=== PATIENT | female | born 2005 | race Caucasian/White ===

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

== ENCOUNTER → 2023-02-07 16:45 | Outpatient (CLI) | payer MEDICAID, SELFPAY ==
--- NOTE | 2023-02-07 | DI.RAD_ITS ---
Exam(s) XR CHEST 2V PA LATERAL EXAM: XR CHEST 2V PA LATERAL CLINICAL HISTORY: Acute Bronchitis J20.9 TECHNIQUE: 2D digital imaging was performed of the chest. Two images were obtained. PA and lateral views were obtained. COMPARISON: CR XR CHEST 2V PA LATERAL from 10/23/2021 FINDINGS: MEDIASTINUM: Normal. HEART: Normal. PULMONARY VASCULATURE: Normal. LUNGS: Clear. PLEURAL SPACE: No pleural effusion or pneumothorax. BONE:Within normal limits for the patient's age. OTHER FINDINGS:Normal. IMPRESSION: No acute pulmonary findings. DATA REPOSITORY: RADIATION DOSE DELIVERED:
== END ==
PROVIDERS: PCP Physician Assistant; Visit Provider Physician Assistant
DX: J20.9 Acute bronchitis, unspecified (principal)
CPT/HCPCS: 71046

== ENCOUNTER 2023-06-09 11:42 | Outpatient (REF) | payer MEDICAID, SELFPAY ==
--- OUTSIDE RECORDS SUMMARY | 2023-06-09 11:44 | XMS_ITS | Continuity of Care Document ---
Author Name Unknown Organization [facility] Address [address] [place] [address] Care Team Providers Care Dinner Cook Name Role Phone Liam [facility] Primary Care Physician Encounter [facility] [id number] Date(s): 05/26/23 - 05/26/[address] [address] Encounter Diagnosis Infection of urinary tract(Discharge Diagnosis) - 05/26/23 Urinary tract infection, site not specified(Final) - Discharge Disposition: Home or Self Care Attending Physician: Belkys Greenwood MD Admitting Physician: Belkys Greenwood MD Allergies, Adverse Reactions, Alerts No Known Medication Allergies Assessment and Plan Extracted from: Title:ED Provider Note Author:Ovidio Guerrier MD Date:05/26/23 1.??Infection of urinary tra ct??N39.0 Orders: Pyridium 200 mg oral tablet, 200 mg = 1 tab, Oral, TID(PC), X 3 days, # 9 tab, 0 Refill(s), 05/29/23 20:08:00 EST, Pharmacy: [facility], 170, cm, 10/31/22 16:53:00 EDT, Height/Length Dosing, 74.84, kg, 10/31/22 16:53:00 EDT, Weight Dosing Bactrim DS 800 mg-160 mg oral tablet, 1 tab, Oral, BID, X 10 days, # 20 tab, 0 Refill(s), 06/05/23 20:07:00 EST, Pharmacy: [facility], 170, cm, 10/31/22 16:53:00 EDT, Height/Length Dosing, 74.84, kg, 10/31/22 16:53:00 EDT, Weight Dosing Bactrim DS, 1 tab, Oral, Tab, Daily, Antibiotic Indication Other (specify in order comments), First Dose: 05/26/23 20:06:00 EST, STAT Diagnostic Tests Pending * Urine Culture 05/26/23 Functional Status 05/26/23 Family Member Travel History No recent t ravel Recent Travel History No recent travel Other exposure to Infectious Disease Non e Medications Bactrim DS 800 mg-160 mg oral tablet 1 tab, Oral, BID, X 10 days, # 20 tab, 0 Refill(s), 06/05/23 7:07:00 PM DIRECTOR SOFTWARE DEVELOPMENT, Pharmacy: [id number], 170, cm, 10/31/22 16:53:00 EDT, Height/Length Dosing, 74.84, kg, 10/31/22 16:53:00 EDT, WeightDosing Start Date: 05/26/23 Stop Date: 06/05/23 Status: Ordered Keppra 0 Refill(s) Start Date: 09/11/22 Status: Ordered Pyridium 200 mg oral tablet 200 mg = 1 tab, Oral, TID(PC), X 3 days, # 9 tab, 0 Refill(s), 05/29/23 7:08:00 PM DIRECTOR SOFTWARE DEVELOPMENT, Pharmacy: [id number], 170, cm, 10/31/22 16:53:00 EDT, Height/Length Dosing, 74.84, kg, 10/31/22 16:53:00 EDT, Weight Dosing Start Date: 05/26/23 Stop Date: 05/29/23 Status: Ordered Results Laboratory List Name Date Test Urine Qual 05/26/23 Urinalysis Microscopic 05/26/23 Urinalysis with Micro if Indicated and C ulture if Indicated 05/26/23 Most recent to oldest [Reference Range]: 1 UA Color Yellow (05/26/23 6:45 PM) UA WBC [0-3] 25-50 *ABN* (05/26/23 6:45 PM) UA Urobilinogen Normal (05/26/23 6:45 PM) UA Bili [Negative] Negative (05/26/23 6:45 PM) UA Ketones Trace *ABN* (05/26/23 6:45 PM) UA RBC [0-2] 3-5 (05/26/23 6:45 PM) UA Leuk Est 2+ *ABN* (05/26/23 6:45 PM) UA Nitrite Negative (05/26/23 6:45 PM) UA Glucose [Negative] Negative (05/26/23 6:45 PM) UA Bacteria Moderate /HPF *ABN* (05/26/23 6:45 PM) UA Protein Trace *ABN* (05/26/23 6:45 PM) UA Blood 1+ *ABN* (05/26/23 6:45 PM) UA Mucous Rare /HPF *ABN* (05/26/23 6:45 PM) UA Spec Grav 1.025 *NA* (05/26/23 6:45 PM) UA Squam Epithelial [None Seen] Many *ABN* (05/26/23 6:45 PM) UA pH 6.0 *NA* (05/26/23 6:45 PM) UA Appear Hazy *ABN* (05/26/23 6:45 PM) UA Culture Ind?. Indicated (05/26/23 6:45 PM) U hCG Ql Negative (05/26/23 6:45 PM) Vital Signs Most recent to oldest [Reference Range]: 1 Temperature Temporal Artery [36-38 Deg C ] 36.2 Deg C (05/26/23 6:04 PM) Heart Rate Monitored [60-100 bpm] 72 bpm (05/26/23 6:04 PM) Respiratory Rate [12-24 br/min] 14 br/mi n (05/26/23 6:04 PM) Blood Pressure [90-140/60-90 mmHg] 140/6 5mmHg (05/26/23 6:04 PM) Mean Arterial Pressure, Cuff [70-110 mmH g] 90 mmHg (05/26/23 6:04 PM) Weight Estimated 78.84 kg (05/26/23 6:04 PM) Body Mass Index Estimated 27.28 kg/m2 (05/26/23 6:04 PM) Height/Length Estimated 170 cm (05/26/23 6:04 PM) Social History Social History Type Response Tobacco Never tobacco user T obacco Use:. Sex Female Physician Emergency department Note * Ovidio Guerrier MD: PERFORM Event Display: ED Note Physician Authored Date: TIM BLAKE :2005 Age:18 years Sex:Female Visit Date:05/26/2023 Primary Care Physician: Liam MEJÍA-YUE, Vimal STEVENSON Basic Information Time Seen: Ovidio Guerrier MD / 05/26/2023 20:03 Chief Complaint Urination, burning, left flank pain. Afebrile. Last night 7/10 pain. Better today. Never had UTI before. Trying to get . History Of Present Illness: Any concern is dysuria. ??Time of onset is 1 week ago.?? Associated symptoms are feeling warm at night, urinary frequency??and headache.?? Also mild left back pain. Review of Systems: As per HPI. Physical Exam Vitals & Measurements T:??36.2?C ??(Temporal Artery)?? HR:??72??(Monitored)?? RR:??14?? BP:??140/65?? SpO2:??100%?? HT:??170??cm?? WT:??78.84??kg??(Estimated)?? BMI:??27.28?? Pain Score:??7?? O2 Therapy:??Room air?? No distress. ??Respirations normal. ??Mental status normal??minimal left CVA tenderness. Medical Decision Making: Complexity is low. ??Data complexity is low. ??Management risk are low. ??MDM coding 49437 Procedure No Qualifying Data Assessment/Plan 1.??Infection of urinary tract??N39.0 Orders: Pyridium 200 mg oral tablet, 200 mg = 1 tab, Oral, TID(PC), X 3 days, # 9 tab, 0 Refill(s), 05/29/23 20:08:00 EST, Pharmacy: [facility], 170, cm, 10/31/22 16:53:00 EDT, Height/Length Dosing, 74.84, kg, 10/31/22 16:53:00 EDT, Weight Dosing Bactrim DS 800 mg-160 mg oral tablet, 1 tab, Oral, BID, X 10 days, # 20 tab, 0 Refill(s), 06/05/23 20:07:00 EST, Pharmacy: [facility], 170, cm, 10/31/22 16:53:00 EDT, Height/Length Dosing, 74.84, kg, 10/31/22 16:53:00 EDT, Weight Dosing Bactrim DS, 1 tab, Oral, Tab, Daily, Antibiotic Indication Other (specify in order comments), FirstDose: 05/26/23 20:06:00 EST, STAT Medication Reconciliation New Prescription phenazopyridine (Pyridium 200 mg oral tablet)1 tab Oral (given by mouth) 3 times a day after meals for 3 Days. Refills: 0. ?? sulfamethoxazole-trimethoprim (Bactrim DS 800 mg-160 mg oral tablet)1 tab Oral (given by mouth) 2 times a day for 10 Days. Refills: 0. ?? Unchanged levETIRAcetam (Keppra) Problem List/Past Medical History Ongoing No qualifying data Historical No qualifying data Medication Administration Given Bactrim DS, 1 tab, Oral Pyridium, 190 mg, Oral Allergies No Known Medication Allergies Social History Electronic Cigarette/Vaping Electronic Cigarette Use: Never. Tobacco Never tobacco user Tobacco Use:. Lab Results Testing?? LATEST RESULTS?? U hCG Ql?? 05/26/23 18:45?? Negative? UA Macroscopic?? LATEST RESULTS?? UA Color?? 05/26/23 18:45?? Yellow?? UA Appear?? 05/26/23 18:45?? Hazy Abnormal?? UA Glucose?? 05/26/23 18:45?? Negative?? UA Bili?? 05/26/23 18:45?? Negative?? UA Ketones?? 05/26/23 18:45?? Trace Abnormal?? UA Spec Grav?? 05/26/23 18:45?? 1.025?? UA Blood?? 05/26/23 18:45?? 1+ Abnormal?? UA pH?? 05/26/23 18:45?? 6.0?? UA Protein?? 05/26/23 18:45?? Trace Abnormal?? UA Urobilinogen?? 05/26/23 18:45?? Normal?? UA Nitrite?? 05/26/23 18:45?? Negative?? UA Leuk Est?? 05/26/23 18:45?? 2+ Abnormal?? UA Culture Ind?.?? 05/26/23 18:45?? Indicated? UA Microscopic?? LATEST RESULTS?? UA WBC?? 05/26/23 18:45?? 25-50 Abnormal?? UA RBC?? 05/26/23 18:45?? 3-5?? UA Squam Epithelial?? 05/26/23 18:45?? Many Abnormal?? UA Mucous?? 05/26/23 18:45?? Rare Abnormal?? UA Bacteria?? 05/26/23 18:45?? Moderate Abnormal? Electronically Signed on 05/26/23 08:11 PM Ovidio Guerrier MD Emergency department Discharge instructions * Ovidio Guerrier MD: PERFORM Event Display: ED Discharge Information Authored Date: [id number] TIM BLAKE :2005 Age:18 years Sex:Female Visit Date:05/26/2023 Primary Care Physician: Liam GOMEZ, Vimal STEVENSON Discharge Instructions We would like to thank you for allowing us to assist you with your healthcare needs. The following includes patient education materials and information regarding your injury/illness. Diagnosis from Today's Visit Infection of urinary tract Discharge Vitals Temperature??(Temporal Artery) 97.2 ??F (36.2 ??C) Heart Rate??(Monitored) 72 Respiratory Rate?? 14 Blood Pressure?? 140/65?? Height?? 66.93 in (170 cm) Weight??(Estimated) 173.84 lb (78.84 kg) BMI?? 27.28 Allergies No Known Medication Allergies You were treated today on an emergency basis; it may be castellanos to contact your primary care provider to notify them of your visit today. You may have been referred to your regular doctor or a specialist, please follow up as instructed. If your condition worsens or you can't get in to see the doctor, contact the Emergency Department. Medications What How Much When Instructions Next Dose New phenazopyridine (Pyridium 200 mg oral tablet) 1 tab Oral (given by mouth) 3 times a day after meals Duration: 3 Days Pickup at [facility] New sulfamethoxazole-trimethoprim (Bactrim DS 800 mg-160 mg oral tablet) 1 tab Oral (given by mouth) 2 times a day Duration: 10 Days Pickup at [facility] Unchanged levETIRAcetam (Keppra) Pharmacy Information [facility]: [address], [place] [id number] [phone] Tests Performed Medications and Immunizations Administered Given Bactrim DS, 1 tab, Oral Pyridium, 190 mg, Oral Lab Test Name Test Result Date/Time U hCG Ql NEGATIVE 05/26/2023 18:45 EST UA Color YELLOW. 05/26/2023 18:45 EST UA Appear Hazy- [place] 05/26/2023 18:45 EST UA Glucose NEGATIVE 05/26/2023 18:45 EST UA Bili NEGATIVE 05/26/2023 18:45 EST UA Ketones TRACE. 05/26/2023 18:45 EST UA Spec Grav 1.025 05/26/2023 18:45 EST UA Blood 1+ 05/26/2023 18:45 EST UA pH 6.0 05/26/2023 18:45 EST UA Protein TRACE. 05/26/2023 18:45 EST UA Urobilinogen 0.2 Uro 05/26/2023 18:45 EST UA Nitrite NEGATIVE 05/26/2023 18:45 EST UA Leuk Est 2+ 05/26/2023 18:45 EST UA Culture Ind?. Indicated 05/26/2023 18:45 EST UA WBC 25-50 05/26/2023 18:45 EST UA RBC 3-5 05/26/2023 18:45 EST UA Squam Epithelial Many 05/26/2023 18:45 EST UA Mucous Rare 05/26/2023 18:45 EST UA Bacteria Moderate 05/26/2023 18:45 EST Patient/White Mixing Operator Signature Patient Name:LOU TIM Giovany I have received this information and my questions have been answered. Patient/White Mixing Operator Name: Patient/White Mixing Operator Signature: Relationship to Patient: Witness Name/Signature: Date: Electronically Signed on: 05/26/2023 20:11 ESTSigned by:[facility] Discharge summary * Shell Jacobsen H: PERFORM Event Display: Discharge Summary Authored Date: [id number] Patient Care team information Care Team Personnel Name: Liam MEJÍAHC-VTVimal Position: No Access Member Role: Informed Provider Address: Address: [facility] [id number] [place] [address] Care Team Related Persons Name: ANITA ZAMBRANO Name: REX BLAKE
--- OUTSIDE RECORDS SUMMARY | 2023-06-09 11:44 | XMS_ITS | Continuity of Care Document ---
Author Name Unknown Organization [facility] Address [address] [place] [address] Care Team Providers Care Front End Web Designer Name Role Phone [facility] Primary [facility]ician [phone] Encounter [facility] Date(s): 09/11/22 - 09/11/22 [facility] [address] [place] [address] Discharge Disposition: Home or Self Care Attending Physician: Aries Liu MD Admitting Physician: Aries Liu MD Allergies, Adverse Reactions, Alerts No Known Medication Allergies Functional Status 09/11/22 Other exposure to Infectious Disease Non e Medications Keppra 0 Refill(s) Start Date: 09/11/22 Status: Ordered Vital Signs Most recent to oldest [Reference Range]: 1 Temperature Temporal Artery [36-38 Deg C ] 37.4 Deg C (09/11/22 10:04 PM) Peripheral Pulse Rate [60-100 bpm] 108 b pm *HI* (09/11/22 10:04 PM) Respiratory Rate [12-24 br/min] 16 br/mi n (09/11/22 10:04 PM) Blood Pressure [90-140/60-90 mmHg] 144/8 5mmHg *HI* (09/11/22 10:04 PM) Weight Dosing 86.00 kg (09/11/22 10:09 PM) Weight Estimated 86.00 kg (09/11/22 10:04 PM) Height/Length Dosing 170.000 cm (09/11/22 10:09 PM) Height/Length Estimated 170.000 cm (09/11/22 10:04 PM) Social History Social History Type Response Tobacco Never tobacco user T obacco Use:. Sex Female Physician Emergency department Note * Aries Liu MD: PERFORM Event Display: ED Note Physician Authored Date: [id number] TIM BLAKE :2005 Age:17 years Sex:Female Visit Date:09/11/2022 Primary Care Physician: Vimal Dickinson HPI 17-year-old female presents for evaluation of left third and fourth finger pain predominantly at the MCP, patient reports that these fingers bent back when she slipped and caught herself with her left hand shortly prior to arrival. Patient was on stairs when she slipped. Denies further injuries.??ROS with no recent constitutional symptoms. ?? Exam HR 108, RR 16, BP 144/85, T 37.4?C, SaO2 98% on room air. Gen: Pleasant, nontoxic-appearing, resting comfortably. HEENT: NC, AT, PEERL, EOMI. Resp: Unlabored respirations with a normal work of breathing. Card: Extremities warm and well perfused.?? GI: Non-distended. : Deferred MSK: Left hand with slight swelling on the dorsum of the hand predominantly over the third and fourth MCPs. All fingers warm and well perfused, slightly reduced range of motion throughout all modalities of the third and fourth finger secondary to pain at the MCP. Otherwise full functional range of motion all modalities of the 5 fingers. No underlying bony tenderness to palpation or palpable abnormalities. Sensation grossly intact to touch. Neuro:??alert and oriented?3, no facial asymmetry, vision and hearing WNL. Heme/Lymph: Deferred Skin: Normal color with no visible lesions (other than noted above). Psych: Mood and affect appropriate. ?? Imaging XR L Hand:??No fracture. If pain persists, suggest splinting and follow up radiographs in 7-10 days. ?? MDM Previous chart, nursing note, and vitals reviewed.?? A:??17-year-old female presents for evaluation of left third and fourth finger pain predominantly at the MCP, patient reports that these fingers bent back when she slipped and caught herself with herleft hand shortly prior to arrival.? DDx & Evaluation: CMS intact, imaging without evidence of fracture. Recommend NSAIDs and PCP follow-up if pain persist. ?? Impression: hand pain, MCP strain. Electronically Signed on 09/11/22 11:32 PM Aries Liu MD Emergency department Discharge instructions * Aries Liu MD: PERFORM Event Display: ED Discharge Information Authored Date: [id number] TIM BLAKE :2005 Age:17 years Sex:Female Visit Date:09/11/2022 Primary Care Physician: Vimal Dickinson Discharge Instructions We would like to thank you for allowing us to assist you with your healthcare needs. The following includes patient education materials and information regarding your injury/illness. ?? You were seen at [facility] for evaluation for evaluation of??injuries to your left hand. At the time of your evaluation no fractures were found. You are suspected to have a strain of your third and fourth metacarpal phalangeal joints (knuckles). You may take ibuprofen and acetaminophenas directed below for treatment of pain. Should you have significant persisting pain after 3-4 days, please follow-up with your primary care physician for repeat evaluation and further care as needed.??Please read and follow all of the instructions below. ?? When calling for follow-up care, please make the office aware that this follow- up is from your recent emergency room visit.? Your care today was limited to identifying and treating emergent medical problems only. Many peoplehave subtle differences in their test results that require follow up with their outpatient physician(s) to correctly determine if this represents a normal variation or concerning abnormality with respect to your specific health.??The care given to you today was limited to identifying and treating emergent medical problems - you need to request a copy of all of your medical records from today's visit and follow up with your outpatient physician(s) to review both today's visit and your overall health. If you have any new symptoms or if you are at all concerned about your health please return immediately to the emergency department. ?? Prescriptions: If you are uninsured or have financial difficulties with filling your prescription(s), you may consider using a free pharmacy discount service such as [employer] ([employer]) or [employer] ([employer] These services allow you to search for a medication on your phone (or computer) and obtain a coupon that usually has a significant discount from the list lopez at a pharmacy. Your physician does not have a financial relationship with either of these services. You may also wish to speak with your physician to determine if lower cost prescriptions are possible. ?? You make take over the counter Acetaminophen (Tylenol) and Ibuprofen (Motrin or Aleve) as directed below for relief of pain.?Take 600 mg of ibuprofen (three 200 mg tablets) with a glass of water every 6-8 hours as neededfor pain or fever. Do not take if you have ulcers, GI bleeding, are , or are allergic to ibuprofen. ?Take 1,000 mg of acetaminophen (two 500 mg tablets) with a glass of water every 6-8 hours as needed for pain. Do not take if you are allergic to acetaminophen. If you have liver disease, please reduce your dose to a maximum of 2,000 mg per day. ?You can take these medications at the same time or on separate schedules.?Do not take for more than 10 days. ?Do not take with alcohol or other acetaminophen containing medications.?This medication may cause a mildly upset stomach, if so take it with a small snack. Stop takingit if you have persistent abdominal pain, heartburn, or any stomach pain. Do not take this medication if you have known ulcers.?Please read the warnings at the end of this document regarding these medications.? IBUPROFEN WARNING: This drug may infrequently cause serious (rarely fatal) bleeding from the stomach or intestines. Also, related drugs rarely have caused blood clots to form, resulting in heart attacks and strokes. This medication might also rarely cause similar problems. Talk to your doctor or pharmacist about the benefits and risks of treatment, as well as other possible medication choices. Ifyou notice any of the following rare but very serious side effects, stop taking ibuprofen and seek immediate medical attention: black stools, persistent stomach/abdominal pain, vomit that looks like coffee grounds, chest pain, weakness on one side of the body, sudden vision changes, slurred speech.? IBUPROFEN SIDE EFFECTS: Upset stomach, nausea, vomiting, heartburn, headache, diarrhea, constipation, drowsiness, and dizziness may occur. If any of these effects persist or worsen, notify your doctor or pharmacist promptly. If your doctor has directed you to use this medication, remember that he or she has judged that the benefit to you is greater than the risk of side effects. Many people usingthis medication do not have serious side effects. Tell your doctor immediately if any of these serious side effects occur: stomach pain, swelling of the hands or feet, sudden or unexplained weight gain, ringing in the ears (tinnitus). Tell your doctor immediately if any of these unlikely but serious side effects occur: vision changes, rapid or pounding heartbeat, easy bruising or bleeding, difficult/painful swallowing. Tell your doctor immediately if any of these highly unlikely but very serious side effects occur: change in amount of urine, severe headache, very stiff neck, mental/mood changes, persistent sore throat or fever. This drug may rarely cause serious (possibly fatal) liver disease. If you notice any of the following highly unlikely but very serious side effects, stop taking ibuprofen and consult your doctor or pharmacist immediately: yellowing eyes and skin, dark urine, unusual/extreme tiredness. An allergic reaction to this drug is unlikely, but seek immediate medical attention if it occurs. Symptoms of an allergic reaction include: rash, itching/swelling (especially ofthe face/tongue/throat), severe dizziness, trouble breathing. This is not a complete list of possible side effects.? ACETAMINOPHEN SIDE EFFECTS: This drug usually has no side effects. If you do not have liver problems, the maximum dose of acetaminophen for adults is 4 grams per day (4000 milligrams). Taking more than the maximum daily amount may cause serious (possibly fatal) liver damage. Get medical help right away if you have any of the following symptoms of liver damage: persistent nausea/vomiting, extreme tiredness, stomach/abdominal pain, yellowing eyes/skin, dark urine. If you have liver problems, consult your doctor or pharmacist for a safe dosage of this medication. A very serious allergic reactionto this drug is rare. However, get medical help right away if you notice any symptoms of a serious allergic reaction, including: rash, itching/swelling (especially of the face/tongue/throat), severe dizziness, trouble breathing. This is not a complete list of possible side effects. If you notice other effects not listed above, contact your doctor or pharmacist. ?? DRUG INTERACTIONS: Your healthcare professionals (e.g., doctor or pharmacist) may already be aware of any possible drug interactions and may be monitoring you for it. Do not start, stop or change thedosage of any medicine before checking with them first. This drug should not be used with the following medications because very serious interactions may occur: cidofovir, ketorolac. If you are currently using any of these medications listed above, tell your doctor or pharmacist before starting ibuprofen. Before using this medication, tell your doctor or pharmacist of all prescription and nonprescription/herbal products you may use, especially of: anti-platelet drugs (e.g., cilostazol, clopidogrel), oral bisphosphonates (e.g., alendronate), other medications for arthritis (e.g., aspirin, methotrexate), blood thinners (e.g., enoxaparin, heparin, warfarin), corticosteroids (e.g., prednisone), cyclosporine, desmopressin, high blood pressure drugs (including CHANA inhibitors such as captopril, angiotensin II receptor antagonists such as losartan, and beta-blockers such as metoprolol), lithium, pemetrexed, water pills (diuretics such as furosemide, hydrochlorothiazide, triamterene). Check all prescription and nonprescription medicine labels carefully for other pain/fever drugs (NSAIDs such as aspirin, celecoxib, naproxen). These drugs are similar to ibuprofen, so taking one of these drugs while also taking ibuprofen may increase your risk of side effects. Consult your doctor or pharmacist for more details. However, if your doctor has prescribed low doses of aspirin to prevent heart attack or stroke (usually at dosages of 81-325 milligrams a day), you should continue to take theaspirin. Daily use of ibuprofen may decrease aspirin's ability to prevent heart attack/stroke. Talkto your doctor about using a different medication (e.g., acetaminophen) to treat pain/fever. If youmust take ibuprofen, talk to your doctor about possibly taking immediate-release aspirin (not enteric-coated) while also taking the ibuprofen dose apart from your aspirin dose. Do not increase your daily dose of aspirin or change the way you take aspirin/other medications without your doctor's approval. This document does not contain all possible interactions. Therefore, before using this product, tell your doctor or pharmacist of all the products you use. Keep a list of all your medications with you, and share the list with your doctor and pharmacist.? Discharge Vitals Temperature??(Temporal Artery) 99.3 ??F (37.4 ??C) Heart Rate??(Peripheral) 108 Respiratory Rate?? 16 Blood Pressure?? 144/85?? Height?? 66.93 in (170.000 cm) Weight??(Estimated) 189.63 lb (86.00 kg) Allergies No Known Medication Allergies You were [...] doctor, contact the Emergency Department. Medications What When Instructions Next Dose Unchanged levETIRAcetam (Keppra) Patient/Supervisor [employer] Signature Patient Name:TIM BLAKE I have received this information and my questions have been answered. Patient/Supervisor [employer] Name: Patient/Supervisor [employer] Signature: Relationship to Patient: Witness Name/Signature: Date: Electronically Signed on: 09/11/2022 23:33 EDTSigned by:YOANDY Emergency department Note * Rosaline Gardner: PERFORM Event Display: ED Notes Authored Date: Patient Care team information Care Team Personnel Name: Vimal Dickinson Position: No Access Member Role: Primary Care Physician Address: Address: [address] Name: Aries Liu MD Position: Physician Member Role: Attending Physician Name: Rama Landry Position: Nurse Member Role: ED Nurse Care Team Related Persons Name: ANITA BLAKE Name: REX BLAKE
--- OUTSIDE RECORDS SUMMARY | 2023-06-09 11:44 | XMS_ITS | Continuity of Care Document ---
Author Name Unknown Organization [facility] Address [address] [place] [address] Care Team Providers Care Forming Department Supervisor Name Role Phone Liam [facility] Encounter [facility] Date(s): 09/24/22 - 09/24/22 [facility] [address] [place] [address] Discharge Disposition: Home or Self Care Attending Physician: Aries Liu MD Admitting Physician: Aries Liu MD Allergies, Adverse Reactions, Alerts No Known Medication Allergies Functional Status 09/24/22 Recent Travel History No recent travel Other exposure to Infectious Disease Non e Medications Keppra 0 Refill(s) Start Date: 09/11/22 Status: Ordered Vital Signs Most recent to oldest [Reference Range]: 1 Temperature Temporal Artery [36-38 Deg C ] 36.6 Deg C (09/24/22 10:06 PM) Peripheral Pulse Rate [60-100 bpm] 81 bp m (09/24/22 10:06 PM) Respiratory Rate [12-24 br/min] 16 br/mi n (09/24/22 10:06 PM) Blood Pressure [90-140/60-90 mmHg] 133/6 8mmHg (09/24/22 10:06 PM) Weight Dosing 86.00 kg (09/24/22 10:11 PM) Weight Estimated 86.00 kg (09/24/22 10:06 PM) Height/Length Dosing 170.000 cm (09/24/22 10:11 PM) Height/Length Estimated 170.000 cm (09/24/22 10:06 PM) Social History Social History Type Response Tobacco Never tobacco user T obacco Use:. Sex Female Physician Emergency department Note * Aries Liu MD: PERFORM Event Display: ED Note Physician Authored Date: [id number] TIM BLAKE :2005 Age:17 years Sex:Female Visit Date:09/24/2022 Primary Care Physician: Liam RODAS, Vimal STEVENSON HPI 17-year-old female presents for evaluation of an injury to her right thumb sustained shortly prior to arrival when it was struck by a fan blade. Patient has a superficial approximately 3 mm long partial-thickness laceration but is concerned that she may have underlying bony deformity. Notes normal distal sensation. Notes that she is not vaccinated (e.g. no prior tetanus vaccinations). ROS with norecent constitutional symptoms. ?? Exam HR 81, RR 16, BP 133/68, T 36.6?C, SaO2 98% on room air. Gen: Pleasant, nontoxic-appearing, resting comfortably. HEENT: NC, AT, PEERL, EOMI. Resp: Unlabored respirations with a normal work of breathing. Card: Extremities warm and well perfused.?? GI: Non-distended. : Deferred MSK: Right thumb with approximately 3 mm long partial-thickness laceration on the medial aspect of the dorsum of the finger approximately 1 cm proximal to the IP joint. No underlying bony tenderness to palpation or palpable abnormalities. Full functional range of motion of the MCP and IP of the first finger. Distal sensation grossly intact to touch, brisk distal capillary refill. Neuro:??alert and oriented?3, no facial asymmetry, vision and hearing WNL. Heme/Lymph: Deferred Skin: Normal color with no visible lesions (other than noted above). Psych: Mood and affect appropriate. ?? Imaging XR R Thumb:??No displaced fractures identified. Cannot rule out mild soft tissue?? swelling. ?? MDM Previous chart, nursing note, and vitals reviewed.?? A: 17-year-old female presents for evaluation of an injury to her right thumb sustained shortly prior to arrival when it was struck by a fan blade.? DDx & Evaluation: Laceration should heal well by secondary intention, patient refusing tetanus vaccination. Imaging without evidence of fracture. Patient given home care instructions and return to care precautions. ?? Impression: Laceration, contusion. Electronically Signed on 09/24/22 11:12 PM Aries Liu MD Emergency department Discharge instructions * Aries Liu MD: PERFORM Event Display: ED Discharge Information Authored Date: [id number] TIM BLAKE :2005 Age:17 years Sex:Female Visit Date:09/24/2022 Primary Care Physician: Vimal Dickinson Discharge Instructions We would like to thank you for allowing us to assist you with your healthcare needs. The following includes patient education materials and information regarding your injury/illness. ?? You were seen at [facility] for evaluation for evaluation of??injuries after being struck by a fan. You are found to have a small laceration that should heal well on its own. Your imagingis without evidence of a fracture. As we discussed, a tetanus vaccination was recommended to reduceyour risk of mary ann tetanus. Clostridium tendinitis spores are present throughout the environment including on objects and the soil. This disease can have a mortality rate upwards of 45% and symptoms can present between 2 days and up to 60 days after initial exposure. Should you develop musclerigidity, muscle spasms, difficulty breathing, or increasing pain, please go to the nearest emergency department. It is recommended that you should follow-up with your primary care physician to review risks and benefits of vaccinations. Additionally, should you develop redness, pain, swelling, tenderness, or discharge from your laceration, please return immediately to the emergency department. Inthe meantime, please keep your wound wash, clean, covered, and dry. ??You may take ibuprofen and acetaminophen as directed on the bottle for treatment of pain. ??Please read and follow all of the instructions below. ?? Please follow up with your primary care physician??this week. When calling for follow-up care, please make the office aware that this follow-up is from your recent emergency room visit.? [...] a free pharmacy discount service such as [employer] ([employer]) or [employer] ([employer]). These services allow you to search for a medication on your phone (or computer) and obtain a coupon that usually has a significant discount from the list lopez at a pharmacy. Your physician does not have a financial relationship with either of these services. You may also wish to speak with your physician to determine if lower cost prescriptions are possible. ?? Ibuprofen (Brand Names: Motrin, Advil) ?Take 400 mg with a glass of water every 6 to 8 hours as needed for pain or fever. ?Do not take for more than 10 days.?This medication may cause a mildly upset stomach, if so take it with a small snack. Stop takingit if you have persistent abdominal pain, heartburn, or any stomach pain. Do not take this medication if you have known ulcers.?Do not take with Naproxen Sodium (brand name: Aleve) or other non-steroidal antiiflammatory medications that you may be prescribed (e.g. Diclofenac, Etodolac, Indomethicin) ?? WARNING: This drug may infrequently cause serious (rarely fatal) bleeding from the stomach or intestines. Also, related drugs rarely have caused blood clots to form, resulting in heart attacks and strokes. This medication might also rarely cause similar problems. Talk to your doctor or pharmacist about the benefits and risks of treatment, as well as other possible medication choices. If you notice any of the following rare but very serious side effects, stop taking ibuprofen and seek immediate medical attention: black stools, persistent stomach/abdominal pain, vomit that looks like coffee grounds, chest pain, weakness on one side of the body, sudden vision changes, slurred speech.? SIDE EFFECTS: Upset stomach, nausea, vomiting, heartburn, headache, diarrhea, constipation, drowsiness, and dizziness may occur. If any of these effects persist or worsen, notify your doctor or pharmacist promptly. If your doctor has directed you to use this medication, remember that he or she has judged that the benefit to you is greater than the risk of side effects. Many people using this medication do not have serious side effects. [...] an allergic reaction include: rash, itching/swelling (especially of the face/tongue/throat), severe dizziness, trouble breathing. This is not a complete list of possible side effects.? DRUG INTERACTIONS: Your healthcare professionals (e.g., doctor [...] share the list with your doctor and pharmacist. Acetaminophen (Tylenol) ?Please take 1,000 mg every 6 hours as needed for pain.?Do no use with alcohol or other??acetaminophen??containing medications.? SIDE EFFECTS: This drug usually has no side effects. If you do not have liver problems, the maximumdose of acetaminophen for adults is 4 grams per day (4000 milligrams). Taking more than the maximumdaily amount may cause serious (possibly fatal) liver damage. Get medical help right away if you have any of the following symptoms of liver damage: persistent nausea/vomiting, extreme tiredness, stomach/abdominal pain, yellowing eyes/skin, dark urine. If you have liver problems, consult your doctor or pharmacist for a safe dosage of this medication. A very serious allergic reaction to this drug is rare. However, get medical help right away if you notice any symptoms of a serious allergic reacti on, including: rash, itching/swelling (especially of the face/tongue/throat), severe dizziness, trouble breathing. This is not a complete list of possible side effects. If you notice other effects not listed above, contact your doctor or pharmacist. ?? Discharge Vitals Temperature??(Temporal Artery) 97.9 ??F (36.6 ??C) Heart Rate??(Peripheral) 81 Respiratory Rate?? 16 Blood Pressure?? 133/68?? Height?? 66.93 in (170.000 cm) Weight??(Estimated) 189.63 [...] When Instructions Next Dose Unchanged levETIRAcetam (Keppra) Patient/Real Estate Valuer Signature Patient Name:TIM BLAKE I have received this information and my questions have been answered. Patient/Real Estate Valuer Name: Patient/Real Estate Valuer Signature: Relationship to Patient: Witness Name/Signature: Date: Electronically Signed on: 09/24/2022 23:13 EDTSigned by:YOANDY Emergency department Note * Shell Jacobsen H: PERFORM Event Display: ED Notes Authored Date: [id number] Patient Care team information Care Team Personnel Name: Vimal Dickinson Position: No Access Member Role: Informed Provider Address: Address: [address] Name: Aries Liu MD Position: Physician Member Role: Attending Physician Name: Vivian Hoffman RN Position: Nurse Member Role: ED Nurse Care Team Related Persons Name: ANITA ZAMBRANO Name: REX BLAKE
--- OUTSIDE RECORDS SUMMARY | 2023-06-09 11:44 | XMS_ITS | Continuity of Care Document ---
Author Name Unknown Organization [facility] Address [address] [place] [address] Care Team Providers Care Client Service Professional Name Role Phone [facility] Phys[facility] Date(s): 10/31/22 - 10/31/[address] [address] Encounter Diagnosis Otitis externa(Discharge Diagnosis) - 10/31/22 Discharge Disposition: Home or Self Care Attending Physician: Ovidio Guerrier MD Admitting Physician: Ovidio Guerrier MD Allergies, Adverse Reactions, Alerts No Known Medication Allergies Assessment and Plan Extracted from: Title:Clinical Document Author:Kati Weinberg te:10/31/22 Diagnosis: 1. Otitis externa Comment: Diagnosis: Pain in ear Comment: Functional Status 10/31/22 Other exposure to Infectious Disease Non e Medications Keppra 0 Refill(s) Start Date: 09/11/22 Status: Ordered Vital Signs Most recent to oldest [Reference Range]: 1 Temperature Temporal Artery [36-38 Deg C ] 35.8 Deg C *LOW* (10/31/22 4:50 PM) Peripheral Pulse Rate [60-100 bpm] 86 bp m (10/31/22 4:50 PM) Respiratory Rate [12-24 br/min] 18 br/mi n (10/31/22 4:50 PM) Blood Pressure [90-140/60-90 mmHg] 133/8 5mmHg (10/31/22 4:50 PM) Weight Dosing 74.84 kg (10/31/22 4:53 PM) Weight Estimated 74.84 kg (10/31/22 4:50 PM) Height/Length Dosing 170.000 cm (10/31/22 4:53 PM) Height/Length Estimated 170.000 cm (10/31/22 4:50 PM) Social History Social History Type Response Tobacco Never tobacco user T obacco Use:. Sex Female Hospital Discharge Instructions Patient Education 10/31/2022 16:16:29 Otitis Externa Otitis Externa Otitis externa is an infection of the outer ear canal. The outer ear canal is the area between the outside of the ear and the eardrum. Otitis externa is sometimes called swimmer's ear. What are the causes? Common causes of this condition include: ??? Swimming in dirty water. ??? Moisture in the ear. ??? An injury to the inside of the ear. ??? An object stuck in the ear. ??? A cut or scrape on the outside of the ear or in the ear canal. What increases the risk? You are more likely to develop this condition if you go swimming often. What are the signs or symptoms? The first symptom of this condition is often itching in the ear. Later symptoms of the condition include: ??? Swelling of the ear. ??? Redness in the ear. ??? Ear pain. The pain may get worse when you pull on your ear. ??? Pus coming from the ear. How is this diagnosed? This condition may be diagnosed by examining the ear and testing fluid from the ear for bacteria and funguses. How is this treated? This condition may be treated with: ??? Antibiotic ear drops. These are often given for 10???14 days. ??? Medicines to reduce itching and swelling. Follow these instructions at home: ??? If you were prescribed antibiotic ear drops, use them as told by your health care provider. Do not stop using the antibiotic even if you start to feel better. ??? Take zgue-vqw-hdykziw and prescription medicines only as told by your health care provider. ??? Avoid getting water in your ears as told by your health care provider. This may include avoiding swimming or water sports for a few days. ??? Keep all follow-up visits. This is important. How is this prevented? Keep your ears dry. Use the corner of a towel to dry your ears after you swim or bathe. ??? Avoid scratching or putting things in your ear. Doing these things can damage the ear canal or remove the protective wax that lines it, which makes it easier for bacteria and funguses to grow. ??? Avoid swimming in lakes, polluted water, or swimming pools that may not have enough chlorine. Contact a health care provider if: ??? You have a fever. ??? Your ear is still red, swollen, painful, or draining pus after 3 days. ??? Your redness, swelling, or pain gets worse. ??? You have a severe headache. Get help right away if: ??? You have redness, swelling, and pain or tenderness in the area behind your ear. Summary ??? Otitis externa is an infection of the outer ear canal. ??? Common causes include swimming in dirty water, moisture in the ear, or a cut or scrape in the ear. ??? Symptoms include pain, redness, and swelling of the ear canal. ??? If you were prescribed antibiotic ear drops, use them as told by your health care provider. Do not stop using the antibiotic even if you start to feel better. This information is not intended to replace advice given to you by your health care provider. Make sure you discuss any questions you have with your health care provider. Document Revised: 06/24/2021 Document Reviewed: 06/24/2021 CheckInPage Patient Education ?? 2022 [employer]. 10/31/2022 16:16:28 Ear Drops, Adult Ear Drops, Adult You have been diagnosed with a condition that requires you to put drops of medicine into one ear orboth ears. This sheet gives you information about how to use ear drops. Your health care provider may also give you more specific instructions. Supplies needed: ??? Cotton balls. ??? Ear drops. How to put ear drops in your ear 1. Wash your hands thoroughly for 20 seconds with soap and water. If soap and water are not available, use hand shipping and receiving specialist. 2. Make sure your ears are clean and dry. If there is any earwax or drainage at the outer part of the ear canal, wipe it out gently with a cotton-tipped swab. 3. Warm up the medicine by holding it in your hand for a few minutes. 4. Gently shake the bottle to mix the ear drops. 5. Use the dropper to draw up the ear drops. 6. Hold the dropper above your ear canal and put the drops in the affected ear as instructed. Do not put the dropper into your ear at any time. It may help to pull the upper part of the ear up and back while you put the drops in. Doing this will straighten out the ear canal so the medicine can get into the canal more easily. 7. To make sure your ear soaks up the ear drops, do either of these things: ??? Lie down with the affected ear facing up for 10 minutes. This will cause the drops to stay in the ear canal and fill the canal. ??? Gently put a cotton ball in your ear canal. Leave enough of the cotton ball out so it can be easily removed. Do not push the cotton ball down into your ear with a cotton-tipped swab or other instrument. You can remove the cotton ball once the medicine has been absorbed by your ear, or after 15???30 minutes have passed. 8. If both ears need the drops, repeat the procedure for the other ear. Your health care provider will let you know if you need to put drops in both ears. 9. Wash your hands with soap and water for 20 seconds after using ear drops. If soap and water are not available, use hand shipping and receiving specialist. Follow these instructions at home: ??? Use the ear drops for as long as directed by your health care provider, even if you begin to feel better. ??? Always wash your hands for 20 seconds before and after handling the ear drops. ??? Keep the ear drops at room temperature. ??? Do not wash out (irrigate) your ears unless instructed by your health care provider. ??? Keep all follow-up visits as told by your health care provider. This is important. Contact a health care provider if: ??? Your condition gets worse. ??? Your pain or itching gets worse. ??? You notice any unusual drainage from your ear, especially if the drainage has a bad smell. ??? You have new trouble hearing. ??? You develop a rash around your ear. ??? You have used the ear drops for the amount of time recommended by your health care provider, but your symptoms have not improved. Get help right away if: ??? You experience a form of dizziness in which you feel as if the room is spinning and you feel like you might vomit (vertigo). ??? The outside of your ear becomes red or swollen. ??? You develop a severe headache with or without neck stiffness. Summary ??? Ear drops are a medicine that is placed in the ear. ??? Put drops in the affected ear as told by your health care provider. ??? Use the ear drops for as long as directed by your health care provider, even if you begin to feel better. ??? Keep all follow-up visits as told by your health care provider. This is important. This information is not intended to replace advice given to you by your health care provider. Make sure you discuss any questions you have with your health care provider. Document Revised: 06/04/2020 Document Reviewed: 02/06/2020 [employer] Patient Education ?? 2022 [employer]. Follow Up Care 10/31/2022 16:49:59 With:Vimal Dickinson Address: [address] [place] [address]- When:1 month Physician Emergency department Note * Kati Weinberg: PERFORM Event Display: ED Note Physician Authored Date: [id number] * Reed Hendrickson MD: PERFORM Event Display: ED Note Physician Authored Date: [id number] TIM BLAKE :2005 Age:17 years Sex:Female Visit Date:10/31/2022 Primary Care Physician: Vimal Dickinson Basic Information Time Seen: Reed Hendrickson MD / 10/31/2022 16:55 Chief Complaint pt feels like there is something clogging her right ear, has been like this of ra week now. pt tried to use water to wash it out. History Of Present Illness: 17-year-old female??presents with right ear pain for a week she thinks there might??either be something in the??or??EXTR may be an ear infection.?? On and off discharge from the ear. ??Did go swimming 4 days ago but the pain started before this.?? Was thinking possibly the right ear has a??earring stuck in the ear canal??potentially.?? No fevers or any other symptoms. Review of Systems: Ear pain Physical Exam Vitals & Measurements T:??35.8?C ??(Temporal Artery)?? HR:??86??(Peripheral)?? RR:??18?? BP:??133/85?? SpO2:??98%?? HT:??170.000??cm?? WT:??74.84??kg??(Estimated)?? O2 Therapy:??Room air?? Multiple piercings to the right external ear. ??There is no obvious foreign body??noted within the ear canal itself or earring noted within the ear canal, there is some??drainage and??erythema to theexternal ear canal. Medical Decision Makin-year-old female presents with right ear pain.?? Vitals are stable. ??Patient has??evidence of anexternal ear infection in the right ear??with erythema of the ear canal and some discharge. ??An attempt was made to??try to curette some of the??discharge out as it was hard to tell whether there was something??small??in the very distal portion of the ear canal next to the tympanic membrane, howeve r??patient was uncomfortable during the attempted removal??and thus this was stopped.?? Perhaps after??the patient is on eardrops to reduce some inflammation and infection??with visual reevaluation would be??appropriate to fully rule out small foreign body??in the external ear canal.?? Discharged in stable condition with return precautions ED and primary care follow-up. Procedure No Qualifying Data Assessment/Plan 1.??Otitis externa??H60.90 Ordered: Discharge Patient, 10/31/22 17:09:00 EDT, Home Independently, Constant Indicator ?? Orders: Ciprodex 0.3%-0.1% otic suspension, 4 drops, Ear-Right, Susp, QID for 5 days, First Dose: 10/31/22 17:10:00 EDT, Stop Date: 11/05/22 15:59:00 EDT, Physician Stop, STAT Patient Education Otitis Externa Ear Drops, Adult Follow Up With When Contact Information Liam [facility], Vimal STEVENSON Within 1 month [facility] [address] [place], [place] [id number]- Additional Instructions: Medication Reconciliation Unchanged levETIRAcetam (Keppra) Problem List/Past Medical History Ongoing No qualifying data Historical No qualifying data Medication Administration Given Ciprodex 0.3%-0.1% otic suspension, 4 drops, Ear-Right Allergies No Known Medication Allergies Social History Electronic Cigarette/Vaping Electronic Cigarette Use: Never. Tobacco Never tobacco user Tobacco Use:. Electronically Signed on 10/31/22 05:17 PM Reed Hendrickson MD Emergency department Discharge instructions * Reed Hendrickson MD: PERFORM Event Display: ED Discharge Information Authored Date: [id number] TIM BLAKE :2005 Age:17 years Sex:Female Visit Date:10/31/2022 Primary Care Physician: Vimal Dickinson Discharge Instructions We would like to thank you for allowing us to assist you with your healthcare needs. The following includes patient education materials and information regarding your injury/illness. Diagnosis from Today's Visit Otitis externa Discharge Vitals Temperature??(Temporal Artery) 96.4 ??F (35.8 ??C) Heart Rate??(Peripheral) 86 Respiratory Rate?? 18 Blood Pressure?? 133/85?? Height?? 66.93 in (170.000 cm) Weight??(Estimated) 165.02 lb (74.84 kg) Allergies No Known Medication Allergies What to Do Next Instructions from Your Care Team It looks like you have an external ear infection. ??Please place the Ciprodex drops into the right ear, 4 drops,??4 times a day for the next 5 days and follow-up with primary care??for reevaluation when the inflammation and infection of the right ear canal??has reduced. ??There was no obvious foreign body noted in the external ear canal today, but reexamination??after being on the eardrops to fully rule out foreign body would be??important.?? Please follow-up with primary care within the next couple of days. You Need to Schedule the Following Appointments Follow Up with??Liam [facility], Vimal STEVENSON When:??Within 1 month Where: [facility] [address] [place] [address]- You were treated today on an emergency [...] When Instructions Next Dose Unchanged levETIRAcetam (Keppra) Education Materials Otitis Externa Otitis externa is an infection of the outer ear canal. The outer ear canal is the area between the outside of the ear and the eardrum. Otitis externa is sometimes called swimmer's ear. What are the causes? Common causes of this condition include: ? Swimming in dirty water. ? Moisture in the ear. ? An injury to the inside of the ear. ? An object stuck in the ear. ? A cut or scrape on the outside of the ear or in the ear canal. What increases the risk? You are more likely to develop this condition if you go swimming often. What are the signs or symptoms? The first symptom of this condition is often itching in the ear. Later symptoms of the condition include: ? Swelling of the ear. ? Redness in the ear. ? Ear pain. The pain may get worse when you pull on your ear. ? Pus coming from the ear. How is this diagnosed? This condition may be diagnosed by examining the ear and testing fluid from the ear for bacteria and funguses. How is this treated? This condition may be treated with: ? Antibiotic ear drops. These are often given for 10???14 days. ? Medicines to reduce itching and swelling. Follow these instructions at home: ? If you were prescribed antibiotic ear drops, use them as told by your health care provider. Do not stop using the antibiotic even if you start to feel better. ? Take spmk-vrg-lvwdbhx and prescription medicines only as told by your health care provider. ? Avoid getting water in your ears as told by your health care provider. This may include avoiding swimming or water sports for a few days. ? Keep all follow-up visits. This is important. How is this prevented? Keep your ears dry. Use the corner of a towel to dry your ears after you swim or bathe. ? Avoid scratching or putting things in your ear. Doing these things can damage the ear canal or remove the protective wax that lines it, which makes it easier for bacteria and funguses to grow. ? Avoid swimming in lakes, polluted water, or swimming pools that may not have enough chlorine. Contact a health care provider if: ? You have a fever. ? Your ear is still red, swollen, painful, or draining pus after 3 days. ? Your redness, swelling, or pain gets worse. ? You have a severe headache. Get help right away if: ? You have redness, swelling, and pain or tenderness in the area behind your ear. Summary ? Otitis externa is an infection of the outer ear canal. ? Common causes include swimming in dirty water, moisture in the ear, or a cut or scrape in the ear. ? Symptoms include pain, redness, and swelling of the ear canal. ? If you were prescribed antibiotic ear drops, use them as told by your health care provider. Do not stop using the antibiotic even if you start to feel better. This information is not intended to replace advice given to you by your health care provider. Make sure you discuss any questions you have with your health care provider. Document Revised: 06/24/2021 Document Reviewed: 06/24/2021 Elsevier Patient Education ?? 2022 Elsevier Inc. Ear Drops, Adult You have been diagnosed with a condition that requires you to put drops of medicine into one ear orboth ears. This sheet gives you information about how to use ear drops. Your health care provider may also give you more specific instructions. Supplies needed: ? Cotton balls. ? Ear drops. How to put ear drops in your ear 1.?? Wash your hands thoroughly for 20 seconds with soap and water. If soap and water are not available,use hand shipping and receiving specialist. 2.?? Make sure your ears are clean and dry. If there is any earwax or drainage at the outer part of the ear canal, wipe it out gently with a cotton-tipped swab. 3.?? Warm up the medicine by holding it in your hand for a few minutes. 4.?? Gently shake the bottle to mix the ear drops. 5.?? Use the dropper to draw up the ear drops. 6.?? Hold the dropper above your ear canal and put the drops in the affected ear as instructed. Do not put the dropper into your ear at any time. It may help to pull the upper part of the ear up and back while you put the drops in. Doing this will straighten out the ear canal so the medicine can get into the canal more easily. 7.?? To make sure your ear soaks up the ear drops, do either of these things: ? Lie down with the affected ear facing up for 10 minutes. This will cause the drops to stay in the ear canal and fill the canal. ? Gently put a cotton ball in your ear canal. Leave enough of the cotton ball out so it can be easilyremoved. Do not push the cotton ball down into your ear with a cotton-tipped swab or other instrument. You can remove the cotton ball once the medicine has been absorbed by your ear, or after 15???30minutes have passed. 8.?? If both ears need the drops, repeat the procedure for the other ear. Your health care provider willlet you know if you need to put drops in both ears. 9.?? Wash your hands with soap and water for 20 seconds after using ear drops. If soap and water are notavailable, use hand shipping and receiving specialist. Follow these instructions at home: ? Use the ear drops for as long as directed by your health care provider, even if you begin to feel better. ? Always wash your hands for 20 seconds before and after handling the ear drops. ? Keep the ear drops at room temperature. ? Do not wash out (irrigate) your ears unless instructed by your health care provider. ? Keep all follow-up visits as told by your health care provider. This is important. Contact a health care provider if: ? Your condition gets worse. ? Your pain or itching gets worse. ? You notice any unusual drainage from your ear, especially if the drainage has a bad smell. ? You have new trouble hearing. ? You develop a rash around your ear. ? You have used the ear drops for the amount of time recommended by your health care provider, but your symptoms have not improved. Get help right away if: ? You experience a form of dizziness in which you feel as if the room is spinning and you feel like you might vomit (vertigo). ? The outside of your ear becomes red or swollen. ? You develop a severe headache with or without neck stiffness. Summary ? Ear drops are a medicine that is placed in the ear. ? Put drops in the affected ear as told by your health care provider. ? Use the ear drops for as long as directed by your health care provider, even if you begin to feel better. ? Keep all follow-up visits as told by your health care provider. This is important. This information is not intended to replace advice given to you by your health care provider. Make sure you discuss any questions you have with your health care provider. Document Revised: 06/04/2020 Document Reviewed: 02/06/2020 Elsevier Patient Education ?? 2022 CheckInPage Inc. Tests Performed Medications and Immunizations Administered Given Ciprodex 0.3%-0.1% otic suspension, 4 drops, Ear-Right Patient/Electrical Project Engineer Signature Patient Name:TIM BLAKE Giovany I have received this information and my questions have been answered. Patient/Electrical Project Engineer Name: Patient/Electrical Project Engineer Signature: Relationship to Patient: Witness Name/Signature: Date: Electronically Signed on: 10/31/2022 17:16 EDTSigned by:TRM Discharge summary * Kati Weinberg: PERFORM Event Display: Discharge Note Authored Date: [id number] Diagnosis: 1. Otitis externa Comment: Diagnosis: Pain in ear Comment: Electronically Signed on 10/31/22 05:19 PM Kati Weinberg Patient Care team information Care Team Personnel Name: Vimal Dickinson Position: No Access Member Role: Informed Provider Address: Address: [facility] [address] [place], [place] [address] Name: Grant Douglas RN Position: Nurse Member Role: ED Nurse Name: Reed Hendrickson MD Position: Physician Member Role: ED Physician Address: Address: [facility] [address] [place] [address] Care Team Related Persons Name: ANITA ZAMBRANO Name: REX BLAKE
== END 2023-06-09 11:43 | disposition home or self-care (01) ==
LOC: NCHCN 11:42
PROVIDERS: PCP Physician Assistant; Referring Provider Student in an Organized Health Care Education/Training Program; Visit Provider Student in an Organized Health Care Education/Training Program
DX: E66.8 Other obesity (principal); R53.83 Other fatigue; Z13.1 Encounter for screening for diabetes mellitus; N97.8 Female infertility of other origin; N94.4 Primary dysmenorrhea
CPT/HCPCS: 87086

== ENCOUNTER 2023-06-09 12:23 | Outpatient (CLI) | payer MEDICAID, SELFPAY ==
[2023-06-09 11:26] LABS: Abs Immature Grans 0.01 10^3/uL (0.0-0.06); Absolute Basophil Count 0.07 10^3/uL (0.0-0.2); Absolute Eosinophil Count 0.07 10^3/uL (0.0-0.7); Absolute Lymphocyte Count 2.24 10^3/uL (1.2-3.4); Absolute Monocyte Count 0.56 10^3/uL (0.1-0.8); Absolute Neutrophil Count 4.16 10^3/uL (1.2-6.7); HCT 41.2 % (36.0-46.0); HGB 13.4 g/dL (11.2-15.7); Immature Grans % 0.1; Lymphocytes % 31.5; MCH 28.3 pg (27.0-33.0); MCHC 32.5 % (32.0-36.0); MCV 87 fL (80-95); MPV 10.5 fL (8.0-11.0); Monocytes % 7.9; Neutrophils % 58.5; Platelet Count 378 10^3/uL (130-400); RBC 4.74 10^6/uL (3.93-5.22); RDW 12.9 % (11.7-14.6); WBC 7.11 10^3/uL (4.4-10.8)
[2023-06-09 11:34] LABS: Bilirubin Negative (Negative); Blood Negative (Negative); Clarity Clear (Clear); Glucose Negative (Negative); Ketones Negative (Negative); Leukocyte Esterase Trace (Negative); Nitrite Negative (Negative); Specific Gravity 1.025 (1.005-1.025); Urobilinogen 0.2 mg/dL (Up to 0.2); pH 6.5 (5-8)
[2023-06-09 11:43] LABS: Hemoglobin A1C 5.6 % (<5.7)
[2023-06-09 11:53] LABS: Epithelial Cells Many HPF (Negative); WBC 0-2 HPF (0-5)
[2023-06-09 11:54] LABS: Bacteria Moderate HPF (Negative); C & S Indicated? No/Sq. Contamination
[2023-06-09 12:13] LABS: Iron 43 ug/dL (50-170)
[2023-06-09 12:23] LABS: Vitamin D 25 Total 8.7 ng/mL (30-100)
[2023-06-09 12:36] LABS: ALT 24 U/L (14-59); AST 10 U/L (15-37); Alkaline Phosphatase 109 U/L (46-116); Anion Gap 11.1 mmol/L (3-11); BUN 10 mg/dL (7-18); Bilirubin, Total 0.2 mg/dL (0.2-1.0); CO2 26.9 mmol/L (21.0-32.0); CREATININE 0.6 mg/dL (0.55-1.02); Calcium 9.5 mg/dL (8.5-10.1); Calculated LDL 107 mg/dL (<100); Chloride 106 mmol/L (98-107); Cholesterol 175 mg/dL (<200); FREE T4 0.89 ng/dL (0.76-1.46); Ferritin 45 ng/mL (8-252); Folate 14.5 ng/mL (8.6-20.0); Glucose 101 mg/dL (74-106); HDL Cholesterol 41 mg/dL (40-60); Potassium 4.3 mmol/L (3.5-5.1); Sodium 144 mmol/L (136-145); TSH 1.77 uIU/mL (0.36-3.74); Triglyceride 136 mg/dL (<150); Vitamin B12 431 pg/mL (193-986)
[2023-06-09 18:58] LABS: T3,Free 4.1 pg/mL (2.8-5.3)
[2023-06-10 17:33] LABS: LH 7.7 mIU/mL (See Note)
[2023-06-13 10:36] LABS: DHEA Sulfate 426 ug/dL (134-407)
[2023-06-13 10:58] LABS: Insulin 24.3 uIU/mL (<29.0)
[2023-06-15 16:11] LABS: Testosterone, Free 0.92 ng/dL (<0.13-1.08); Testosterone, Total 28 ng/dL (8-60)
== END 2023-06-09 12:24 | disposition home or self-care (01) ==
LOC: LBO 12:24
PROVIDERS: PCP Physician Assistant; Visit Provider Naturopath
DX: J20.9 Acute bronchitis, unspecified (principal); R30.0 Dysuria; E55.9 Vitamin D deficiency, unspecified; G40.909 Epilepsy, unspecified, not intractable, without status epilepticus; G43.809 Other migraine, not intractable, without status migrainosus; Z31.61 Procreative counseling and advice using natural family planning; E66.8 Other obesity; R53.83 Other fatigue; D50.9 Iron deficiency anemia, unspecified; R35.0 Frequency of micturition; Z13.220 Encounter for screening for lipoid disorders; Z13.1 Encounter for screening for diabetes mellitus
CPT/HCPCS: 36415; 80053; 80061; 82306; 82627; 84402; 84403; 81003; 81015; 82607; 82728; 82746; 83002; 83036; 83525; 83540; 84439; 84443; 84481; 85025

== ENCOUNTER 2025-03-13 08:18 | Emergency (ER) | payer MEDICAID, SELFPAY ==
[2025-03-13 08:28] VITALS: BP 124/55; PULSE 58; RESP 18; TEMP 35.9; O2SAT 98
[2025-03-13 08:34] VITALS: BP 124/55; PULSE 58; RESP 18; TEMP 35.9; O2SAT 98
--- NOTE | 2025-03-13 08:45 | DI.CT_ITS ---
Exam(s) CT ABDOMEN PELVIS WO EXAM: CT ABDOMEN PELVIS WO CLINICAL HISTORY: left flank pain. TECHNIQUE: Imaging Protocol: Axial computed tomography images with coronal and sagittal reformatted images were created and reviewed CONTRAST MATERIAL: Intravenous: none Oral: None COMPARISON: No exams were available for comparison FINDINGS: VISUALIZED LUNG BASES: No nodules nor pleural effusions evident. ABDOMEN: There is no ascites. LIVER: There are no obvious focal hepatic lesions evident of this noninfused study. GALLBLADDER/BILIARY: No obvious gallbladder pathology. CBD is not dilated. PANCREAS: No evidence of pancreatic mass nor dilatation of the pancreatic duct. SPLEEN: Spleen is not enlarged. No obvious intrasplenic lesions. ADRENALS: There are no significant adrenal masses. KIDNEYS:No cysts evident. No solid renal masses. No intrarenal calculi. No hydronephrosis on the right side. On the left side there is slight dilatation of the infundibulum of the left kidneys but not the renal pelvis nor the left ureter. However, there is a solitary tiny 2 millimeter calcification in left side of the pelvis adjacent to the collapse urinary bladder which is probably at the UV junction of the ureter. There are no other pelvic calcifications noted. ABDOMINAL AORTA: Abdominal aorta is not enlarged. LYMPH NODES: There is no retroperitoneal nor paraaortic adenopathy. ABDOMINAL WALL: No evidence of significant anterior abdominal wall nor inguinal hernia. GI: There is no evidence of bowel obstruction, free air, nor abscess. PELVIS: LYMPH NODES: There is no intrapelvic nor inguinal adenopathy. GI: No evidence of appendicitis.No evidence of sigmoid diverticulitis. URINARY BLADDER: As above REPRODUCTIVE: Uterus and ovaries appear age-appropriate. OSSEOUS: No significant osseous lesions. IMPRESSION: 1. There is a solitary small 2 millimeter calcification left side of the pelvis in the region of the left UVJ of the lower left ureter. No other calcifications in the pelvis. This is most probably a tiny calculus in the UVJ level of the left ureter. There does appear to be slight dilatation of the infundibulum I of the ipsilateral left kidney. 2. No radiopaque calculi noted with in either kidney. 3. No evidence of appendicitis nor diverticulitis. Called by myself to ER provider 03/13/2025 at 10:08 a.m. RADIATION DOSE DELIVERED: 689.57mGy.cm Total DLP DATA REPOSITORY: All CT scans at this facility are submitted to the National Radiology Data Registry (NRDR) Dose Index Registry (DIR) with the [employer] (A[employer]). RADIATION OPTIMIZATION: All CT scans at this facility use at least one of these dose optimization techniques: automated exposure control; mA and/or kV adjustment per patient size (includes targeted exams where dose is matched to clinical indication); or iterative reconstruction.
[2025-03-13 09:07] LABS: Abs Immature Grans 0.01 10^3/uL (0.0-0.06); HCT 39.6 % (36.0-46.0); HGB 12.8 g/dL (11.2-15.7); Immature Grans % 0.1 %; MCH 28.8 pg (27.0-33.0); MCHC 32.3 % (32.0-36.0); MCV 89 fL (80-95); MPV 10.9 fL (8.0-11.0); Platelet Count 296 10^3/uL (130-400); RBC 4.44 10^6/uL (3.93-5.22); RDW 12.6 % (11.7-14.6); RDW-SD 41.1 fL; WBC 6.84 10^3/uL (4.4-10.8)
[2025-03-13] MEDS: MORPHine 10 MG/ML VIAL 4 MG IVP (09:15)
[2025-03-13] MEDS: Ondansetron 4 MG/2 ML VIAL IVP ×2 (09:15→12:03)
[2025-03-13] MEDS: Normal Saline 1,000 ML 1000 ML IV (09:16)
[2025-03-13 09:18] LABS: Glucose Negative (Negative)
[2025-03-13 09:20] VITALS: BP 102/80; PULSE 63; RESP 18; O2SAT 99
[2025-03-13 09:23] LABS: Lipase 26 U/L (<53)
[2025-03-13 09:25] LABS: ALT 10 U/L (10-49); AST 17 U/L (<34); Albumin 4.8 g/dL (3.4-5.0); Alkaline Phosphatase 77 U/L (46-116); Anion Gap 9.8 mmol/L (3-11); BUN 13 mg/dL (9-23); Bilirubin, Total 0.90 mg/dL (0.2-1.2); CO2 27.2 mmol/L (20.0-31.0); Calcium 9.6 mg/dL (8.3-10.6); Chloride 105 mmol/L (98-107); Glucose 113 mg/dL (74-106); Potassium 3.6 mmol/L (3.5-5.1); Sodium 142 mmol/L (136-145); Total Protein 7.6 g/dL (5.7-8.2)
[2025-03-13 09:26] LABS: RBC 20-50 HPF (0-2); WBC 0-2 HPF (0-5)
[2025-03-13 09:27] LABS: C & S Indicated? No
[2025-03-13 09:35] VITALS: BP 123/74; PULSE 62; RESP 17; O2SAT 99
[2025-03-13] MEDS: HYDROmorphone 2 MG/ML SYR 1 MG IVP (09:35)
[2025-03-13] MEDS: Ketorolac 15 MG/ML VIAL 7.5 MG IVP (10:08)
[2025-03-13] MEDS: Tamsulosin 0.4 MG CAPCR PO (10:48)
[2025-03-13 10:49] VITALS: BP 110/56; PULSE 63; RESP 17; O2SAT 100
[2025-03-13 11:42] VITALS: BP 117/54; PULSE 60; RESP 17; TEMP 36.6; O2SAT 97
--- NOTE | 2025-03-14 10:19 | W.ED.GENAD ---
Discharge Plan Disposition Patient Disposition: Home Condition: Stable Discharge Details Clinical Impression: Ureterolithiasis Primary Care Provider: Vimal Wheeler ED Provider: Ashlie Bird Home Meds and New Rx's Prescriptions: New tamsulosin [Flomax] 0.4 mg capsule 0.4 mg PO QHS Qty: 7 0RF morphine 15 mg tablet 15 mg PO BID PRNQty: 8 0RF tamsulosin [Flomax] 0.4 mg capsule 0.4 mg PO DAILY Qty: 7 0RF ondansetron 4 mg tablet,disintegrating 4 mg PO TID PRN3 Days Qty: 10 0RF Discharge Instructions Instructions: How to Strain Your Urine Additional Instructions: Please continue to strain your urine Take the Flomax daily for the next 7 days Follow-up with the urologist You will likely pass the stone on your own, make sure you are drinking at least eight 8 ounce glasses of water daily Take Tylenol for breakthrough pain Morphine is an addictive medication, you should not operate a vehicle while taking this medication and it can cause constipation Please be reevaluated should you develop fever, chills, urinary complaints, or should any new concerns arise Take Zofran as needed for nausea and vomiting Stand Alone Forms: Portal Information, Work Release Referrals: Carlton Mays MD [ [facility] STAFF PHYSICIAN, Urology] Discharge Data Discharge Date/Time-TO BE ENTERED AT DEPARTURE: 03/13/25 12:16 HPI General Date/Time Provider Initiated Documentation: 03/13/25 08:41. HPI Narrative: Otherwise healthy 20-year-old female presents with report of left flank pain that started abruptly this morning when she arrived to work. She has nausea and vomiting associated. She denies history of similar symptoms in the past chance of fever chills or any injuries. Related Data Home Medications Medication Instructions Recorded Confirmed morphine 15 mg immediate release 15 mg PO BID PRN #8 tabs 03/13/25 tablet ondansetron 4 mg disintegrating 4 mg PO TID PRN 3 days #10 tabs 03/13/25 tablet tamsulosin 0.4 mg capsule (Flomax) 0.4 mg PO DAILY #7 caps 03/13/25 tamsulosin 0.4 mg capsule (Flomax) 0.4 mg PO QHS #7 caps 03/13/25 Previous Rx's Medication Instructions Recorded morphine 15 mg immediate release 15 mg PO BID PRN #8 tabs 03/13/25 tablet ondansetron 4 mg disintegrating 4 mg PO TID PRN 3 days #10 tabs 03/13/25 tablet tamsulosin 0.4 mg capsule (Flomax) 0.4 mg PO DAILY #7 caps 03/13/25 tamsulosin 0.4 mg capsule (Flomax) 0.4 mg PO QHS #7 caps 03/13/25 Allergies Allergy/AdvReac Type Severity Reaction Status Date / Time No Known Allergies Allergy Unverified 03/13/25 08:31 General Stated Complaint: FlankPain TERRENCE: 3 Exam Narrative Exam Narrative: 20-year-old female, alert and oriented, uncomfortable, left flank tenderness no abdominal tenderness answering questions appropriately Course Vital Signs Vital signs: Vital Signs Temperature 35.9 C L 03/13/25 08:28 Pulse 58 L 03/13/25 08:28 Respiratory Rate 18 03/13/25 08:28 Blood Pressure 124/55 L 03/13/25 08:28 Pulse Oximetry 98 03/13/25 08:28 Temperature 36.6 C 03/13/25 11:42 Temperature Source Oral 03/13/25 11:42 Pulse 60 03/13/25 11:42 Respiratory Rate 17 03/13/25 11:42 Blood Pressure 117/54 L 03/13/25 11:42 Blood Pressure Mean 75 03/13/25 11:42 Pulse Oximetry 97 03/13/25 11:42 Oxygen Delivery Method Room Air 03/13/25 11:42 Oxygen Flow Rate 0 03/13/25 11:42 Pain Level 6 03/13/25 12:17 Lab/Test Results Lab/Test Results: Laboratory Tests Range/Units 03/13/25 09:00 WBC (4.4-10.8) 10^3/uL 6.84 RBC (3.93-5.22) 10^6/uL 4.44 Hgb (11.2-15.7) g/dL 12.8 Hct (36.0-46.0) % 39.6 MCV (80-95) fL 89 MCH (27.0-33.0) pg 28.8 MCHC (32.0-36.0) % 32.3 RDW (11.7-14.6) % 12.6 Plt Count (130-400) 10^3/uL 296 MPV (8.0-11.0) fL 10.9 Immature Gran % % 0.1 Neutrophils % % 53.6 Lymphocytes % % 37.6 Monocytes % % 7.6 Eosinophils % % 0.4 Basophils % % 0.7 Nucleated RBC % (0.0-0.3) % 0.0 Absolute Neutrophils (1.2-6.7) 10^3/uL 3.66 Absolute Lymphocytes (1.2-3.4) 10^3/uL 2.57 Absolute Monocytes (0.1-0.8) 10^3/uL 0.52 Absolute Eosinophils (0.0-0.7) 10^3/uL 0.03 Absolute Basophils (0.0-0.2) 10^3/uL 0.05 Sodium (136-145) mmol/L 142 Potassium (3.5-5.1) mmol/L 3.6 Chloride (98-107) mmol/L 105 Carbon Dioxide (20.0-31.0) mmol/L 27.2 Anion Gap (3-11) mmol/L 9.8 BUN (9-23) mg/dL 13 Creatinine (0.55-1.02) mg/dL 0.7 Est GFR (CKD-EPI 2020) (mL/min/1.73m2) 104.51 Glucose (74-106) mg/dL 113 H Calcium (8.3-10.6) mg/dL 9.6 Total Bilirubin (0.2-1.2) mg/dL 0.90 AST (<34) U/L 17 ALT (10-49) U/L 10 Alkaline Phosphatase (46-116) U/L 77 Total Protein (5.7-8.2) g/dL 7.6 Albumin (3.4-5.0) g/dL 4.8 Lipase (<53) U/L 26 Urine Color (Yellow) Yellow Urine Clarity (Clear) Sl Cloudy Urine pH (5-8) 6.0 Ur Specific [place] (1.005-1.025) 1.025 Urine Protein (Neg-Trace) mg/dL 30 H Urine Ketones (Negative) mg/dL Negative Urine Blood (Negative) Large H Urine Nitrite (Negative) Negative Urine Bilirubin (Negative) Small H Urine Urobilinogen (Up to 0.2) mg/dL 0.2 Ur Leukocyte Esterase (Negative) Negative Urine RBC (0-2) HPF 20-50 H Urine WBC (0-5) HPF 0-2 Ur Epithelial Cells (Negative) HPF Many Urine Crystals (Negative) HPF Negative Urine Bacteria (Negative) HPF Moderate Urine Casts (Negative) LPF 3-5 Coarse Granular Urine Mucus (Negative) Moderate Ur Culture Indicated? No Urine Glucose (Negative) mg/dL Negative POC- Test(urine) Negative Medical Decision Making Results: 2 mm left UVJ stone on CT scan, urinalysis with blood no evidence of infection CBC BMP within normal limits Assessment and plan: CT results reviewed and likely UVJ stone consistent with patient's presentation, given strainer, feeling symptomatically improved after Toradol morphine and Dilaudid. Will give morphine for home risk of addiction reviewed. No evidence of infected stone, careful return precautions reviewed. Flomax initiated and patient on referral list for urology follow-up. Work note supplied for the remainder of the week PFSH All Active Problems (Updated 03/13/25 @ 11:17 by GRAHAM Khoury) Ureterolithiasis (Acute) Infertility, female (Acute) Seizure (Acute) Family History (Updated 09/01/22 @ 09:35 by Amanda Kyle RN) Other Colon cancer Hypertension Social History Smoking/Tobacco Use Status: Never Smoking risk assessment performed?: Yes Alcohol Intake: never Drug use: Never Substance use type: does not use Housing: apartment Do you feel safe at home: Yes Do you feel safe in your relationship?: Yes
== END 2025-03-13 12:16 | disposition home or self-care (01) ==
PROVIDERS: Emergency Provider Physician Assistant; PCP Physician Assistant
DX: R10.A2 Flank pain, left side (principal); R11.2 Nausea with vomiting, unspecified; N20.1 Calculus of ureter
CPT/HCPCS: 36415; 80053; 81025; 83690; 96361; 96374; 96375; 96376; 99284; 74176; 81003; 81015; 85025; J1171; J1885; J2270; J2405